=== PATIENT | male | born 1935 | race Caucasian/White ===

== ENCOUNTER 2016-08-12 08:30 | Outpatient (CLI) | payer MEDICARE, OTHER ==
[~2016-08-12] VITALS: Ht 175.3 cm; Wt 81.4 kg
--- NOTE | ~2016-08-12 | HEMODYNAMI ---
PATIENT:JUNAID VIEYRA JR MEDICAL RECORD: [id number] : 37 LOCATION:[facility] ADMISSION DATE: 08/12/16 Generatedon:08/12/201614:44 Patient name: JUNAID VIEYRA Patient #: [id number] SSN: : 1935 Date of study: 08/12/2016 Page: Of Hemodynamic Procedure Report Patient Data Patient Demographics Procedure consent was obtained First Name: JUNAID Gender: Male Last Name: JARRELL Suffix: [facility] Initial: Zoltan : 1935 Patient #: [id number] Age: 81 year(s) Race: Unknown Additional ID: [id number] Contact details Address: [place] [address] State: [place] City: [place] Zip code: [address] Past Medical History Allergies Allergen Reaction Date Comments Reported Sulfa drugs 08/12/2016 Admission Admission Data Admission Date: 08/12/2016 Admission Time: 8:30 Weight (lbs.): 179 Weight (kg.): 81.19 Procedure Procedure Types Cath Procedure Peripheral Cath Diagnostic Procedure Cath Peripheral Abd/Extremity Extremities Bilat Lower Extremity Procedure Description Procedure Date Procedure Date: 08/12/2016 Procedure Start Time: 12:38 Procedure Staff Name Function Riley Hong MD Performing Physician Avtar Magana RT Scrub Marilyn Simmons RN Nurse Mary Pino RN Nurse Charlotte Calvin RT Numerical Control Programmer Charlotte Calvin RT Monitor Procedure Data Cath Procedure Fluoroscopy Diagnostic fluoroscopy Total fluoroscopy Time: 34 time: 34 min min Diagnostic fluoroscopy Total fluoroscopy dose: 648 dose: 648 mGy mGy Contrast Material Contrast Material Type Amount (ml) Isovue 300 110 Entry Location Entry Primary Successful Side Size Upsize Upsize Entry Closure Succes sful Closure Location (Fr) 1 (Fr) 2 (Fr) Remarks Device Remarks Femoral Left Exoseal artery Diagnostic catheters Device Type Used For End Catheter Placement Diagnostic 5Fr IMT Catheter Procedure Medications Medication Administration Route Dosage Nitroglycerin IC/IA I.A. 300 mcg Hemodynamics Rest Heart Rate: 69 (bpm) Snapshots Pre Cath Intra NCS Post Cath Vital Signs Time Heart Resp SPO2 NIBP (mmHg) Rhythm Pain Sedation Rate (ipm) (%) Status Level (bpm) 12:08:21 61 10 99 No Cuff NSR 0 (11) 10(A) , No pain 12:12:37 66 17 100 161/84(126) NSR 0 (11) 10(A) , No pain 12:16:55 64 24 100 167/84(131) NSR 0 (11) 10(A) , No pain 12:21:18 69 0 100 164/83(135) NSR 0 (11) 10(A) , No pain 12:25:40 66 7 100 174/81(131) NSR 0 (11) 10(A) , No pain 12:30:02 69 5 100 164/88(120) NSR 0 (11) 10(A) , No pain 12:34:18 69 13 100 169/92(138) NSR 0 (11) 10(A) , No pain 12:38:42 71 16 100 164/78(134) NSR 0 (11) 10(A) , No pain 12:43:08 63 10 100 132/69(103) NSR 0 (11) 10(A) , No pain 12:47:23 62 14 100 138/69(103) NSR 0 (11) 10(A) , No pain 12:51:38 62 13 100 126/65(96) NSR 0 (11) 10(A) , No pain 12:55:50 63 18 100 144/66(110) NSR 0 (11) 10(A) , No pain 13:00:08 59 10 100 138/69(105) NSR 0 (11) 10(A) , No pain 13:04:26 61 12 100 123/62(92) NSR 0 (11) 10(A) , No pain 13:08:38 60 13 100 129/64(100) NSR 0 (11) 10(A) , No pain 13:12:50 59 12 100 137/69(100) NSR 0 (11) 10(A) , No pain 13:17:31 73 17 100 123/84(115) NSR 0 (11) 10(A) , No pain 13:22:30 64 15 100 Measuring NSR 0 (11) 10(A) , No pain 13:22:36 63 15 100 150/73(116) NSR 0 (11) 10(A) , No pain 13:26:54 64 14 100 138/75(119) NSR 0 (11) 10(A) , No pain 13:31:08 65 11 100 140/72(110) NSR 0 (11) 10(A) , No pain 13:35:24 66 10 98 140/73(107) NSR 0 (11) 10(A) , No pain 13:39:40 70 11 98 140/71(107) NSR 0 (11) 10(A) , No pain 13:43:58 69 11 100 155/66(96) NSR 0 (11) 10(A) , No pain 13:48:25 71 19 100 128/60(104) NSR 0 (11) 10(A) , No pain 13:52:39 65 10 100 126/62(95) NSR 0 (11) 10(A) , No pain 13:56:50 67 10 100 122/66(85) NSR 0 (11) 10(A) , No pain 14:01:02 68 10 100 120/63(94) NSR 0 (11) 10(A) , No pain 14:05:16 68 11 100 112/66(96) NSR 0 (11) 10(A) , No pain 14:09:22 72 19 99 126/71(101) NSR 0 (11) 10(A) , No pain 14:13:38 67 19 100 126/59(89) NSR 0 (11) 10(A) , No pain 14:17:50 68 11 100 134/71(117) NSR 0 (11) 10(A) , No pain 14:22:00 72 11 100 132/82(113) NSR 0 (11) 10(A) , No pain 14:26:14 70 10 99 133/67(112) NSR 0 (11) 10(A) , No pain 14:30:28 15 99 141/68(117) NSR 0 (11) 10(A) , No pain 14:34:46 70 12 100 138/75(117) NSR 0 (11) 10(A) , No pain 14:39:45 71 18 98 Measuring NSR 0 (11) 10(A) , No pain 14:40:02 69 17 98 Out of NSR 0 (11) 10(A) range , No pain Medications Time Medication Route Dose Verified Delivered Reason Notes Effec tiveness by by 13:54:21 Nitroglycerin I.A. 300 Riley Lin for IC/IA mcg Hal taylor MD, MD Procedure Log Time Note 12:06:17 Patient Weight : 179 kg 12:07:00 Time tracking: Regular hours 12:07:07 Plan of Care:Hemodynamics will remain stable., Cardiac rhythm will remain stable., Comfort level will be maintained., Respiratory function will remain adequate., Patient/ family verbilizes understanding of procedure., Procedure tolerated without complication., Recovers from procedure without complications.. 12:07:14 Patient received from Outpatients to IR Alert and oriented. Tansferred to table in Supine position. 12:07:17 Correct patient and procedure confirmed by team. 12:07:19 Signed procedure consent form obtained from patient. 12:07:30 ECG and BP/O2 sat monitors applied to patient. 12:07:31 Vital chart was started 12:07:33 Baseline sample Acquired. 12:07:42 Full Disclosure recording started 12:07:43 - 12:07:48 H&P Date Dictated: 08/12/2016 Within 30 days and on chart.. 12:07:50 Pre-procedure instructions explained to patient. 12:07:52 Pre-op teaching completed and patient verbalized understanding. 12:07:54 Family in waiting room. 12:08:01 Patient NPO since Midnight. 12:08:19 Patient allergic to Sulfa drugs 12:08:38 Patient diabetic? No. 12:09:24 IV patent on arrival in left forearm with 0.9% NaCl at [facility]. 12:09:38 Left groin area was prepped with chlora-prep and draped in sterile fashion 12:09:53 Alarms reviewed by R. N. 12:09:54 Sharps counted by scrub and verified by RJatin 12:09:56 - 12:10:19 see anesthesia notes for monitoring of patient during procedure 12:10:23 Use device set IR Diagnostic 12:10:25 Sterile Angiographic Pack opened to sterile field. 12:10:26 Bag Decanter opened to sterile field. 12:11:06 Terumo 5Fr [place] Sheath opened to sterile field. 12:11:07 Micropuncture VSI 4FR kit opened to sterile field. 12:11:08 Reflektion STAR 260 guide wire opened to sterile field. 12:11:10 Reflektion DOC .035 guide wire opened to sterile field. 12:11:19 - 12:16:24 Tr MARTINEZSON 145cm guide wire opened to sterile field. 12:16:25 Reflektion ROXANNA 260 .035 glide wire opened to sterile field. 12:16:26 CXI SUPPORT .035 135 CM STR catheter opened to sterile field. 12:17:00 Terumo 6Fr [place] Destination Sheath opened to sterile field. 12:26:09 BasixTOUCH Inflation Syringe opened to sterile field. 12:34:23 Physician arrived 12:36:52 --------ALL STOP TIME OUT------ 12:36:53 Final Timeout: patient, procedure, and site verified with staff and physician. All members of the team are in agreement. 12:37:22 Physical assessment completed. ASA score P 3 - A patient with severe systemic disease as per Riley Hong MD. 12:37:39 Sedation plan: TIVA Propofol 12:38:29 Procedure started. 12:38:47 Local anesthetic to left femerol artery with Lidocaine 1% by Riley Hong MD.INITIAL ACCESS ONLY 12:38:52 Arterial access obtained using ultrasound guidance. 12:39:46 A Diagnostic 5Fr IMT Catheter was advanced over the wire and used for . 13:07:18 Terumo ANGLE 260cm glide wire opened to sterile field. 13:10:27 [place] Sci Choice PT Floppy J 300cm 0.014 guide wi opened to sterile field. 13:10:45 OUTBACK LTD L120C catheter opened to sterile field. 13:12:52 [place] Sci Choice PT Extra Support J 300cm .014 gu opened to sterile field. 13:25:36 Terumo 7Fr [place] Destination Sheath opened to sterile field. 13:38:28 [place] Sci Choice PT Floppy J 300cm 0.014 guide wi opened to sterile field. 13:40:38 Inflation number: 1 A Saber 3.5 x 150 x 150 balloon was prepped and advanced across the Undefined1, then inflated to 14 EPIFANIO for 0:10 (min:sec). 13:43:43 Turbohawk 1 Large Atherectomy catheter opened to sterile field. 13:54:21 Nitroglycerin IC/IA 300 mcg I.A. was administered by Riley Hong MD; for vasodilation; 14:04:00 Zilver PTX 6 x 100 stent was deployed across Undefined1 . 14:13:45 zilver 7x100 stent deployed lot # [id number] and zilver 7x60 stent deployed, lot# [id number] 14:15:10 Inflation number: 2 A Cordis Powerflex Pro 6.0 x 100 x 135cm balloon wa s prepped and advanced across the Undefined1, then inflated to 15 EPIFANIO for 0:10 (min:sec). 14:22:22 Inflation number: 1 A Cordis Powerflex Pro 7.0 x 100 x 135cm balloon wa s prepped and advanced across the Undefined2, then inflated to 12 EPIFANIO for 0:10 (min:sec). 14:24:40 St Feroz 7FR sheath opened to sterile field. 14:26:54 Cordis 7Fr Exoseal opened to sterile field. 14:27:58 Sheath removed intact; hemostasis achieved with Exoseal to the Left Femoral artery. 14:27:58 A sheath was inserted into the Left Femoral artery 14:28:33 Procedure ended.(Physican Out) 14:37:06 Fluoroscopy time 34.00 minutes. 14:37:13 Fluoroscopy dose: 648 mGy 14:37:13 Flurop Dose total: 648 14:37:22 Contrast amount:Isovue 300 110ml. 14:37:26 Sharps counted by scrub and verified by R.NBelkis 14:37:29 Procedure and supply charges have been captured, reviewed, submitted an d are correct. 14:44:00 Vital chart was stopped Intervention Summary Intervention Notes Time ActionType Lesion and Equipment Action# Pressure Duration Attributes Used 13:40:38 Inflate Undefined1 Saber 3.5 1 14 00:10 balloon x 150 x 150 balloon 14:04:00 Deploy self Undefined1 Zilver 1 expanding PTX 6 x stent 100 stent 14:15:10 Inflate Undefined1 Cordis 2 15 00:10 balloon Powerflex Pro 6.0 x 100 x 135cm balloon 14:22:22 Inflate Undefined2 Cordis 1 12 00:10 balloon Powerflex Pro 7.0 x 100 x 135cm balloon Device Usage Item Name Manufacture Quantity Catalog Number Hospital Part Current Min imal Lot# / Charge Number Stock Stock Serial# Code Sterile Cardinal 1 [id number] 5 Angiographic Health Pack Bag Decanter Microtek 1 2002S [id number] 47401 651429 5 [employer] Terumo 5Fr Terumo 1 [id number] 480606 268978 682392 40 [place] Sheath Micropuncture VSI VASCULAR 1 [id number] 263507 037167 5 VSI 4FR kit SOLUTIONS [facility] 1 B98263 568073 978337 5 [id number] 260 guide wire Cook DOC .035 [facility] 1 G89041 544864 055333 5 [id number] guide wire Cook BENTSON [facility] 1 I40466 192867 799098 5 [id number] 145cm guide wire Cook [facility] 1 U40030 688994 295349 5 2372536 ROADRUNNER 260 .035 glide wire CXI SUPPORT [facility] 1 P03414 700449 339748 5 [id number] .035 135 CM STR catheter Terumo 6Fr Terumo 1 RSR01 885883 50571 085420 5 [place] Destination Sheath BasixTOUCH Merit 1 BZ1185 610742 158551 993656 5 Inflation Medical Syringe Diagnostic [place] 1 [id number] 853309 080181 21723 5 5Fr IMT Scientific Catheter Terumo ANGLE Terumo 1 II5191 645025 433282 947884 5 260cm glide wire Be[place] Sci Bealeton 2 [id number] 221738 179919 5 Choice PT Scientific Floppy J 300cm 0.014 guide wi OUTBACK LTD Cardinal 1 [id number] 841153 352893 187610 5 L120C Health catheter Be[place]eton Sci Be[place]eton 1 [id number] 24080505 210517 5 Choice PT Scientific Extra Support J 300cm .014 gu Terumo 7Fr Terumo 1 RSR04 933648 191603 455535 5 [place] Destination Sheath Saber 3.5 x Cardinal 1 [id number] 753164 013607 5 150 x 150 Health balloon Turbohawk 1 Ev3 1 H1-M 224534 407927 415133 5 Large Atherectomy catheter Zilver PTX 6 [facility] 1 M96166 079291 929956 629127 5 [id number] x 100 stent Cordis Cardinal 1 [id number] 477138 816947 318875 5 Powerflex Pro Health 6.0 x 100 x 135cm balloon Cordis Cardinal 1 [id number] 340267 607983 756626 5 Powerflex Pro Health 7.0 x [address] [facility] [address] Feroz 1 764961 681749 455665 5 [id number] sheath Cordis 7Fr Cardinal 1 EX700 624842 422507 666719 5 [id number] [facility] Signature Audit [place] Stage Time Signature Unsigned Intra-Procedure 08/12/2016 Charlotte Calvin 2:43:57 PM RT(R) Signatures Monitor : Charlotte Calvin RT Signature : Date : Time : [facility] [address] [place] [address]
[~2016-08-12 08:30] MED LIST: ARED EYE VITAMIN; BAYER CHEWABLE81 MG PO; EFUDEX 5 % CREA40 GM TOPICAL; FISH OIL 1,2001 CAP PO; LIPITOR10 MG PO; MIRALAX17 GM PO; NEO/POLYMYXIN/H10 ML EACH EAR; NITRO-DUR0.4 MG TRANSDERM; ULTRAM50 MG PO; VITAMIN D31000 UNIT PO; VITAMIN E400 UNI2 PO; XALATAN 0.0052.5 ML EACH EYE; ZYLOPRIM300 MG PO
[2016-08-12 09:19] LABS: BASOPHILS 0.3 % (0-2); EOSINOPHILS 3.5 % (0-7); HEMATOCRIT 44.1 % (42.0-54.0); HEMOGLOBIN 15.2 g/dL (13.5-17.5); IMMATURE GRANULOCYTES 0.1 % (0-5); LYMPHOCYTES 28.6 % (15-50); MCH 32.3 pg (26.0-34.0); MCHC 34.5 g/dL (31.0-37.0); MCV 93.8 fL (80.0-100.0); MEAN PLATELET VOLUME 11.4 fL (7.4-10.4); NEUTROPHILS 60.5 % (40-80); PLATELET COUNT 181 10x3/uL (130-400); RDW 13.3 % (11.5-14.5)
[2016-08-12 09:25] LABS: INR 0.98 (0.85-1.17); PROTIME 12.8 SECONDS (11.6-15.0)
[2016-08-12 09:26] LABS: ANION GAP 9.2 mmol/L (8-16); APTT 29.5 SECONDS (22.8-39.4); CALCIUM 9.1 mg/dL (8.5-10.1); CARBON DIOXIDE 28.7 mmol/L (21.0-32.0); CREATININE - SERUM 1.1 mg/dL (0.6-1.3); POTASSIUM - SERUM 3.9 mmol/L (3.5-5.1)
[2016-08-12 09:48] VITALS: BP 167/84; Ht 175.3 cm; Wt 81.4 kg
== END 2016-08-12 19:00 | disposition home or self-care (01) ==
LOC: D.OPS 08:30 → D.RAD 11:00 → D.OPS 19:00
PROVIDERS: General Practice
DX: I70.221 Atherosclerosis of native arteries of extremities with rest pain, right leg (principal)

== ENCOUNTER 2017-02-11 16:10 | Emergency (ER) | payer MEDICARE, OTHER ==
[2016-08-12 09:48] VITALS: BMI 26.5
== END 2017-02-11 17:57 | disposition home or self-care (01) ==
LOC: D.ER 16:10
DX: S61.412A Laceration without foreign body of left hand, initial encounter (principal); S61.411A Laceration without foreign body of right hand, initial encounter; W50.0XXA Accidental hit or strike by another person, initial encounter; Y93.89 Activity, other specified; Y92.89 Other specified places as the place of occurrence of the external cause; Z86.73 Personal history of transient ischemic attack (TIA), and cerebral infarction without residual deficits

== ENCOUNTER 2017-04-24 22:15 | Emergency (ER) | payer MEDICARE, OTHER ==
[2016-08-12 09:48] VITALS: BMI 26.5
== END 2017-04-25 00:47 | disposition home or self-care (01) ==
LOC: D.ER 22:15
DX: M79.622 Pain in left upper arm (principal)